=== PATIENT | female | born 1970 ===

== ENCOUNTER 2016-08-04 18:37 | Inpatient (IN) ==
[2016-08-04 19:55] LABS: PT Patient Result 10.7 SECS
[2016-08-04 19:56] LABS: Calcium 8.7 MG/DL (8.5-10.1); Magnesium 2.1 MG/DL (1.8-2.4); Osmolality,Calculated 278.4 MOS/KG (273-304); Potassium 3.4 MMOL/L (3.5-5.1)
--- NOTE | 2016-08-04 20:02 | Emergency Department Note ---
Frida Méndez Brittany, am scribing for, and in the presence of, Kevin Murray M.D. 19:47. Terri Méndez Howard T, M.D., personally performed the services described in this documentation, ascribed by Rhonda Galicia in my presence, and it is both accurate and complete . Arrival - Arrival Chief Complaint: Non-Specific Stated Complaint: sent by [facility] for low iron levels ED Nursing Triage Note: C/O BEING TRANSFERED FROM [facility] FOR LOW H & H, +FATIGUED , DENIES VOMITING, + DIARRHEA., Mode of Arrival: Ambulatory Limitations: No Limitations Source: Patient - History of Present Illness HPI Narrative: This is a 46 y/o female,who presents to the ED for further evualtion of low H& H. She was transferred from [facility] for low H&H and fatigue. She denies any diarrhea or vomiting. She denies any blood in her stool. She reports "bouts of constipation and the diarrhea" She reports starting before 2015 she noticed feeling tired and weak. She denies taking antacids. She denies any CP or SOB but does note mild palpations at times. Pt has no other complaints/ pain in the ED at this time. Pt has a PMHx of HTN and thyroid disorder. Pt denies a surgical Hx. Pt denies a social Hx. Onset (ago): minute(s) (Minutes [employer]) Consistency: constant Severity: moderate Date of Last Menstrual Period: Jul Allergies/Adverse Reactions: Allergies Allergy/AdvReac Type Severity Reaction Status Date / Time No Known Allergies Allergy Unverified 08/04/16 18:43 Home Medications: Home Medications Medication Instructions Recorded Confirmed Type Ergocalciferol (Vitamin D2) 50,000 unit PO 08/04/16 08/04/16 History [Vitamin D2] Levothyroxine Tab [Synthroid Tab] 50 mcg PO DAILY@0700 08/04/16 08/04/16 History hydroCHLOROthiazide 25 mg PO DAILY 08/04/16 08/04/16 History [Hydrochlorothiazide] Review of System - Review of System 12 point system: reviewed and no additional remarkable complaints except as stated - Review of System Constitutional: Present: weakness, other (Tirdness and fatigue) Cardiovascular: Present: palpitations ("Every now and then"). Absent: chest pain Gastrointestinal: Absent: vomiting, diarrhea, constipation, hematemesis, hematochezia Medical,Surgical,& Family Hx - Medical History Cardio: History of: Hypertension Endocrine: History of: Thyroid Disorder - Social History Smoking Status: Never smoker Frequency of Alcohol Use: None Type of Drug Use: None Exam Vital Signs: Vital Signs Temperature 98.3 F 08/04/16 18:40 Pulse Rate 94 H 08/04/16 18:40 Respiratory Rate 16 08/04/16 18:40 Blood Pressure 155/84 08/04/16 18:40 O2 Sat by Pulse Oximetry 100 08/04/16 18:40 - General General appearance: alert, in no apparent distress - Head Head exam: Present: atraumatic, normocephalic, normal inspection - Eye Eye exam: Present: normal appearance, PERRL, EOMI - ENT ENT exam: Present: normal exam, normal oropharynx, mucous membranes moist - Neck Neck exam: Present: normal inspection, full ROM, trachea midline. Absent: tenderness, thyromegaly - Chest Chest inspection: Present: normal inspection, symmetric chest wall rise. Absent : tenderness, rash, abscess - Respiratory Respiratory exam: Present: normal lung sounds bilaterally. Absent: rales, respiratory distress, rhonchi, stridor, wheezes - Cardiovascular Cardiovascular exam: Present: regular rate, normal rhythm, normal heart sounds. Absent: murmur, rubs, gallop, clicks - Abdominal Exam Abdominal exam: Present: soft, normal bowel sounds. Absent: distention, tenderness, guarding, rebound, rigidity - Extremities Exam Extremities exam: Present: normal inspection, full ROM, normal capillary refill. Absent: tenderness, pedal edema, calf tenderness - Back Exam Back exam: Present: normal inspection, full ROM. Absent: tenderness, muscle spasm, rashes - Neurological Exam Neurological exam: Present: alert, oriented X3, CN II-XII intact, normal gait, reflexes normal - Psychiatric Psychiatric exam: Present: normal affect, normal mood. Absent: agitated, anxious, manic - Skin Skin exam: Present: warm, dry, intact, pallor. Absent: cyanosis, diaphoresis Course Course Narrative: Medical decision making: Patient appears stable but low H&H and fatigue, discussed with hospitalist who will evaluate for probable admission and transfusion and further evaluation. Results - Labs CBC & BMP: 08/04/16 19:29 Lab Results: I have reviewed the patients labs Labs: H/H 11/27, similar to previous labs at [facility] Disposition Clinical Impression: Anemia Case discussed with: patient Disposition: Disch/Xfer-Ipshort Term Hos Condition: Stable Time of Disposition: 20:01
[2016-08-04 20:07] LABS: Bilirubin,Direct 0.2 MG/DL (0.0-0.20)
[2016-08-04 20:08] LABS: Albumin 3.4 G/DL (3.4-5.0); Bilirubin,Indirect 0.8 MG/DL (0.0-1.0); Total Protein 8.9 G/DL (6.4-8.3)
[2016-08-04 20:16] LABS: Basophils % 0.1 % (0.0-0.8); Eosinophils # 0.2 10*3/uL (0.0-0.87); Eosinophils % 1.1 % (0.00-10.9); Immature Granulocytes % 0.4 %; Immature Granulocytes Absolute 0.06 #; Lymphocytes # 2.4 10*3/uL (1.4-4.0); Mean Corpuscular HGB Conc 24.4 GM/DL (32-36); Mean Corpuscular Hemoglobin 14 PG (27-34); Mean Corpuscular Volume 57.6 FL (87-102); Mean Platelet Volume 9.7 FL (9.6-12.0); Monocytes # 0.7 10*3/uL (0.11-0.8); Monocytes % 4.9 % (1.7-12.7); NRBC # 0.02 10*3/uL; Neutrophils # 11.6 10*3/uL (1.4-7.4); Neutrophils % 77.5 % (38.7-73.9); Platelet Count 464 10*3/uL (130-400); Red Blood Count 3.84 10*6/uL (3.8-5.5); Red Cell Distribution Width 22.1 % (9.3-17.3); White Blood Count 14.9 10*3/uL (4.5-13.71)
[2016-08-04 20:20] LABS: Hemoglobin 5.4 GM/DL (12.0-16.0)
[2016-08-04 20:21] LABS: Hematocrit 22.1 VOL% (35.7-47.0)
[2016-08-04] MEDS ORDERED: PANTOPRAZOLE 40 MG VIAL IV STA (20:26)
[2016-08-04] MEDS ORDERED: SODIUM CHLORIDE 0.9% 250 ML IV PRN (20:48)
--- NOTE | 2016-08-04 20:57 | Hospitalist History & Physical ---
Assessment and Plan - Time spent with patient Time spent with patient: Greater than 30 minutes (1) Anemia Status: Acute Assessment and plan: We'll obtain an anemia panel. Hemoccults. And administer 4 units of packed red blood cells. Current Visit: Yes (2) Leukocytosis Status: Acute Assessment and plan: Potentially reactive. Will obtain a Cxray and UA. Current Visit: Yes (3) Thrombocytosis Status: Acute Assessment and plan: Likely reactive. Current Visit: Yes (4) Hypothyroidism Status: Acute Assessment and plan: We'll obtain TSH and place the patient on home medication. Current Visit: Yes History of Present Illness Chief complaint: weakness. Referred for symptomatic anemia. History of present illness: Ms. Tsang is a 46 year old female with a medical history of hypothyroidism and hypertension presents as transfer from [facility]. Patient states she has been since around And[place] feeling tired. She endorses alternating diarrhea and constipation. She has also been having abdominal cramps for about 2 weeks. She has had and some nausea with no vomiting. Denies any fever. No shortness of breath or chest pain. She endorses her stool has been darker than normal for about 2-4 weeks. She presented to her clinic with weakness and said complaints. H&H was obtained. Patient was referred [facility] and finally [facility]. Home Medications Medication Instructions Recorded Confirmed Type Ergocalciferol (Vitamin D2) 50,000 unit PO TU 08/04/16 08/04/16 History [Vitamin D2] Levothyroxine Tab [Synthroid Tab] 50 mcg PO DAILY@0700 08/04/16 08/04/16 History hydroCHLOROthiazide 25 mg PO DAILY 08/04/16 08/04/16 History [Hydrochlorothiazide] Allergies Allergy/AdvReac Type Severity Reaction Status Date / Time No Known Allergies Allergy Unverified 08/04/16 18:43 Medical,Surgical,& Family Hx - Medical History Cardio: History of: Hypertension Endocrine: History of: Thyroid Disorder - Social History Smoking Status: Never smoker Frequency of Alcohol Use: None Type of Drug Use: None 12 point system: reviewed and no additional remarkable complaints except as stated Exam - Constitutional Vitals: Period Temp Pulse Resp BP Sys/Pyle Pulse Ox Last 24 Hr 98.3 F 94 16 155/84 100 General appearance: no acute distress - Head Head exam: Present: normocephalic, atraumatic - Eye Eye exam: Present: EOMI, other (pale conjunctiva) Pupils: Present: SHANTHI - ENT ENT exam: Present: normal exam - Neck Neck exam: Present: normal inspection - Respiratory Respiratory exam: Present: clear to auscultation bilaterally. Absent: rhonchi, wheezes - Cardiovascular Cardiovascular exam: Present: regular rate and rhythm. Absent: gallop, rubs, systolic murmur - GI/Abdominal GI/Abdominal exam: Present: normal bowel sounds, soft. Absent: distended, firm , guarding, tenderness, rebound - Extremities Exam Extremities exam: Present: normal inspection. Absent: calf tenderness, edema Results - Labs CBC & BMP: 08/04/16 19:29 08/04/16 19:29 Lab Results: I have reviewed the past 24 hour labs
[2016-08-04 21:11] LABS: % Iron Saturation 3.6 % (18-50); Ferritin 3.5 ng/ml (8-252)
[2016-08-04 21:20] LABS: Folate 19.1 NG/ML (5.4-24.0)
--- NOTE | 2016-08-04 21:26 | XRay Report ---
XR chest 1V portable Indication: Leukocytosis. Chest one view: No comparison. Heart size and mediastinal contour are normal. Lungs are hypoinflated but generally clear, except for minimal bibasilar atelectasis. Pleural spaces are clear. Bones are intact. Impression: Mild pulmonary hypoinflation with atelectasis. PROCEDURE INTERPRETED AT [facility] DEPARTMENT OF RADIOLOGY Final Report Signed by: Jason Tamayo M.D.
[2016-08-05] MEDS ORDERED: LEVOTHYROXINE 50 MCG TABLET PO SCH (07:00)
[2016-08-05 12:50] LABS: Basophils % 0.2 % (0.0-0.8); Eosinophils # 0.1 10*3/uL (0.0-0.87); Eosinophils % 0.8 % (0.00-10.9); Hematocrit 29.9 VOL% (35.7-47.0); Immature Granulocytes % 0.4 %; Immature Granulocytes Absolute 0.05 #; Lymphocytes # 1.8 10*3/uL (1.4-4.0); Lymphocytes % 14.9 % (21.3-54.2); Mean Corpuscular HGB Conc 28.8 GM/DL (32-36); Mean Corpuscular Hemoglobin 19 PG (27-34); Mean Corpuscular Volume 66.6 FL (87-102); Mean Platelet Volume 9.6 FL (9.6-12.0); Monocytes # 0.7 10*3/uL (0.11-0.8); Monocytes % 5.9 % (1.7-12.7); Neutrophils # 9.4 10*3/uL (1.4-7.4); Neutrophils % 77.8 % (38.7-73.9); Platelet Count 361 10*3/uL (130-400); Red Blood Count 4.49 10*6/uL (3.8-5.5); White Blood Count 12.1 10*3/uL (4.5-13.71)
[2016-08-05 12:55] LABS: Hemoglobin 8.6 GM/DL (12.0-16.0)
[2016-08-05 13:17] LABS: Hypochromasia 2+; Microcytosis 2+; Ovalocytes Few
[2016-08-05 13:18] LABS: Platelet Estimate Normal; Spherocytes Slight
--- NOTE | 2016-08-05 13:20 | Gastrointestinal Consult Note ---
Assessment and Plan (1) Anemia Status: Acute Assessment and plan: 46-year-old female admitted with symptomatic iron deficiency anemia. This appears to not be related to any acute GI bleeding process. She does feel better after transfusion today. Differential includes GY or gynecologic source for bleeding. Check stools for occult blood. Treat empirically with PPI. If remains in hospital, would plan to do EGD Sunday. Current Visit: Yes Qualifiers: Iron deficiency anemia type: chronic blood loss History of Present Illness Chief complaint: Weakness History of present illness: Ms. Tsang is a 46 year old female without significant past medical history who was transferred for evaluation of severe anemia. She states that she has felt weak for over a month along with some mild nausea and decreased appetite. She states that she has lost around 10 pounds of weight. She was found to have hemoglobin of 5.4. The ferritin is significantly low at 3.5. Patient does relate that her stools have been darker than normal but they have not been black. She denies vomiting, abdominal pain, or other change in bowel movements. She does take Aleve several days a week for joint aching. Patient relates that she still has monthly menstrual periods which have been normal for her with 3 or 4 days of bleeding. She is unsure when her last CBC/hemoglobin was done but has never had problems with anemia in the past according to her. She denies any family history of GI cancer. Home Medications Medication Instructions Recorded Confirmed Type Ergocalciferol (Vitamin D2) 50,000 unit PO 08/04/16 08/04/16 History [Vitamin D2] Levothyroxine Tab [Synthroid Tab] 50 mcg PO DAILY@0700 08/04/16 08/04/16 History hydroCHLOROthiazide 25 mg PO DAILY 08/04/16 08/04/16 History [Hydrochlorothiazide] Allergies Allergy/AdvReac Type Severity Reaction Status Date / Time No Known Allergies Allergy Unverified 08/04/16 18:43 Medical,Surgical,& Family Hx - Medical History Cardio: History of: Hypertension Endocrine: History of: Thyroid Disorder - Social History Smoking Status: Never smoker Frequency of Alcohol Use: None Type of Drug Use: None - Constitutional Constitutional: Present: fatigue, weakness, weight loss - EENT Nose, mouth and throat: Absent: dysphagia, epistaxis - Cardiovascular Cardiovascular: Absent: chest pain with activity, diaphoresis, orthopnea, PND - Respiratory Respiratory: Absent: cough, dyspnea - Gastrointestinal Gastrointestinal: Present: as per HPI. Absent: abdominal pain - Genitourinary Genitourinary: Absent: dysuria, flank pain, hematuria - Neurological Neurological: Absent: focal weakness - Endocrine Endocrine: Present: fatigue. Absent: cold intolerance, heat intolerance - Hematologic/Lymphatic Hematologic/Lymphatic: Absent: easy bleeding, easy bruising Exam - Constitutional Vitals: Period Temp Pulse Resp BP Sys/Pyle Pulse Ox Last 24 Hr 97.8 F-98.9 F 74-90 16-20 117-174/52-83 97-100 General appearance: mild distress, over weight - Head Head exam: Present: normocephalic, atraumatic - Eye Eye exam: Absent: scleral icterus - Respiratory Respiratory exam: Present: clear to auscultation bilaterally. Absent: wheezes - Cardiovascular Cardiovascular exam: Present: regular rate and rhythm. Absent: gallop, rubs - GI/Abdominal GI/Abdominal exam: Present: normal bowel sounds, soft. Absent: distended, organomegaly, tenderness - Extremities Exam Extremities exam: Absent: calf tenderness, edema - Neurological Exam Neurological exam: Present: alert, oriented X3, CN II-XII intact. Absent: motor sensory deficit - Psychiatric Psychiatric exam: Present: normal affect, normal mood - Skin Skin exam: Present: warm, dry Results - Labs CBC & BMP: 08/05/16 12:16 08/04/16 19:29 Lab Results: I have reviewed the past 24 hour labs
[2016-08-05] MEDS ORDERED: PHENYLEPHRINE 0.25% SUPP RECTAL ONE (13:28)
[2016-08-05] MEDS ORDERED: BISACODYL 10 MG SUPP RECTAL ONE (14:11)
[2016-08-05 16:16] VITALS: BP 136/68
--- NOTE | 2016-08-05 17:58 | Discharge Summary ---
Hospital Course - Hospital Course Hospital Course: Iron deficiency anemia, symptomatic anemia: Mrs. Tsang presented with symptomatic anemia. Anemia panel revealed iron deficiency. Patient had a positive Hemoccult. She received 4 units of blood with adequate response. She was seen by GI who recommended patient be scoped. Patient was cleared for discharge and will follow up in clinic next week. She'll be prescribed iron tablets and PPI. By discharge she had met maximum benefit of hospitalization. - Time spent with patient Time with patient DS: Greater than 30 minutes Diagnosis - Discharge Diagnosis (1) Anemia Status: Acute (2) Leukocytosis Status: Acute (3) Thrombocytosis Status: Acute (4) Hypothyroidism Status: Acute Specialty Discharge - Follow Up or Referrals Follow up with: Claudio Davis MD [Physician] - (You will need to see Dr Davis this next week with an EGD. We will call his office on Sunday and call you with the appointment.) Discharge Plan - Discharge Medications New Docusate Sodium 100 mg PO BID #60 capsule Ferrous Sulfate 325 mg PO BID #60 tablet Pantoprazole Tab [Protonix Tab] 40 mg PO BID #60 tablet Continue Ergocalciferol (Vitamin D2) [Vitamin D2] 50,000 unit PO TU hydroCHLOROthiazide [Hydrochlorothiazide] 25 mg PO DAILY Levothyroxine Tab [Synthroid Tab] 50 mcg PO DAILY@0700 - Follow Up or Referral Follow Up: Claudio Davis MD [Physician] - (You will need to see Dr Davis this next week with an EGD. We will call his office on Sunday and call you with the appointment.) - Forms/Instructions Instructions: Blood Transfusion (DC), Anemia (DC) Exam - Constitutional Vitals: Period Temp Pulse Resp BP Sys/Pyle Pulse Ox Last 24 Hr 97.8 F-98.9 F 74-90 16-20 117-174/52-83 97-100 General appearance: normal weight, no acute distress - Head Head exam: Present: normal inspection, normocephalic, atraumatic - Eye Eye exam: Present: EOMI Pupils: Present: SHANTHI - ENT ENT exam: Present: normal exam - Neck Neck exam: Present: normal inspection - Respiratory Respiratory exam: Present: clear to auscultation bilaterally - Cardiovascular Cardiovascular exam: Present: regular rate and rhythm - GI/Abdominal GI/Abdominal exam: Present: normal bowel sounds - Extremities Exam Extremities exam: Present: normal inspection Discharge Results Procedures and tests throughout hospitalization: Pending Orders 08/04/16 15:12 Occult Blood, Stool Routine 08/04/16 19:32 Transferrin Routine Labs on day of discharge: Labs from last 24 hours 08/05/16 08/04/16 12:16 20:56 WBC 12.1 RBC 4.49 Hgb 8.6 L D Hct 29.9 L MCV 66.6 L MCH 19 L MCHC 28.8 L RDW 31.0 H Plt Count 361 D MPV 9.6 Neut % (Auto) 77.8 H Lymph % (Auto) 14.9 L [place] % (Auto) 5.9 Eos % (Auto) 0.8 Baso % (Auto) 0.2 Neut # (Auto) 9.4 H Lymph # (Auto) 1.8 [place] # (Auto) 0.7 Eos # (Auto) 0.1 Baso # (Auto) 0.0 Immature Gran % 0.4 Nucleated RBC % 0.0 Immature Gran # 0.05 Nucleated RBCs # 0.00 Platelet Estimate Normal Hypochromasia 2+ Microcytosis 2+ Spherocytes Slight Ovalocytes Few Morphology Comment Blood Type O POSITIVE DS: Provider Date of admission: 08/04/16 20:23 Primary care physician: Ct Middleton MD Attending physician on admission: Luis Stein Jr., MD Discharging clinician: Vangie Jeffery MD Expected date of discharge: 08/05/16
== END 2016-08-05 18:52 | disposition home or self-care (01) | DRG 812 ==
LOC: SUATTDRO → N.ED 18:37 → N.5E 20:22
PROVIDERS: ADMIT Internal Medicine Nephrology; ATTEND Internal Medicine